=== PATIENT | female | born 1985 | race Two or more races ===

== ENCOUNTER 2025-01-07 08:48 | Outpatient (AMB) | payer MEDICAID, SELFPAY ==
[2025-01-07 09:05] VITALS: BP 100/69; PULSE 54; RESP 18; TEMP 36.6; O2SAT 98; BMI 27.1
--- NOTE | 2025-01-07 09:05 | GSCOFFNT_ITS ---
[facility] - [facility] 01/07/25 09:05 Height 1.57 m Height Method Stated Weight 67.33 kg Weight Measurement Method Standing Scale BMI 27.1 BP 100/69 Blood Pressure Source Automatic Cuff Blood Pressure Location Left Upper Arm Position Sitting Respiration 18 Pulse 54 L Pulse Source Monitor Temp 97.8 F Temp Source Temporal Artery Scan Pulse Oximetry (%) 98 Oxygen Delivery Method Room Air Med/Allergies Allergies & Medications Allergies amoxicillin Allergy (Mild, Verified 01/07/25 09:06) RASH Medication Reconciliation Vitamin * 1 tab PO QDAY #0 tabs 08/23/17 [History Confirmed 01/07/25] iron 18 mg tablet 18 mg PO BIDWM #0 tabs 08/23/17 [History Confirmed 01/07/25] hydrocodone 5 mg-acetaminophen 325 mg tablet (Freedom) 1 tab PO Q8H PRN pain #7 tabs 06/15/20 [Rx Confirmed 01/07/25] ibuprofen 600 mg tablet 600 mg PO Q6H PRN pain #14 tabs 06/15/20 [Rx Confirmed 01/07/25] hydrocortisone 2.5 % topical cream with perineal applicator 1 applic [place] QD-BID P RN hemorrhoids #30 grams 01/07/25 [Rx] MA Intake Visit Data Collection New Patient or Established: Established Patient (seen at [facility] within 3 years) Seen by Clinical Staff ONLY (RN/MA): No Reason for Visit:: REFERRAL HEMORRHOIDS Pain Present Currently: No PCP or OBGYN visit in last 3 months: Yes Hx Now: No Do You Feel Safe at Home: Yes Authorities Contacted: N/A Smoking Status Smoking Status: Never smoker Immunization / Flu Flu Vaccine in the Last 12 Months: No Flu Vaccine Exclusion Criteria: Refused by Patient Past Medical History Past Medical History NEUROLOGIC: Negative Neurological Disorders or Seizures CARDIAC: Negative Cardiac Disorders or Congestive Heart Failure RESPIRATORY: Negative Chronic Obstructive Pulmonary Disease (COPD) GASTROINTESTINAL: Negative Gastrointestinal Disorders GENITOURINARY: Negative Genitourinary Disorders or Renal Disease REPRODUCTIVE: Positive Previous Pregnancies; Negative Breast Cancer, Pelvic Inflammatory Disease or Uterine Prolapse ENDOCRINE: Negative Endocrine Disorders, Diabetes Mellitus Type 1 or Diabetes Mellitus Type 2 HEMATOLOGIC: Negative Blood Disorders OTHER HISTORY: Negative Blood Transfusions, Blood Transfusion Reaction, Anesthesia Reactions, MRSA, Clostridium Difficile or Breast Cancer Family History FAMILY HISTORY: Negative Family Psychiatric Problems, Family Respiratory Disorders, Family Cardiac Disorders, Family Gastrointestinal Problems, Family Cancer, Family Surgery or Family Anesthesia Reaction Surgical History SURGICAL: Positive Section Social History SMOKING STATUS: Smoking status: Never smoker SECOND HAND EXPOSURE: second hand exposure: No ALCOHOL: Alcohol Intake: Never HOUSING: Housing: House LIVES WITH: Lives With: Children HPI HPI Narrative 39F referred for symptomatic hemorrhoids. Pt states she has had symptoms on and off for 10 years, but since her last she feels the symptoms have been more persistent. She has perianal discomfort, occasional bleeding and feels that it is hard to keep the area clean as she has a constant bulging of tissue. She also reports occasional abdominal pain and sometimes has blood in her stools, as well as a feeling of incomplete evacuation, but denies any anorexia or unintentional weight loss. Pt has used OTC remedies with some improvement, and states her BMs are generally loose in nature, usually once per day. She drinks plenty of water and is trying to incorporate more fiber into her diet but does not take any supplements. Pt has not had a colonoscopy PMH: None PSHx: Csections Meds: None Allergies: Amoxicillin Social hx: Nonsmoker Family hx: No known IBD or colorectal CA ROS Review of Systems Systems Reviewed: All systems reviewed, normal except as documented Objective/Exam General General Appearance: alert, cooperative and well groomed Resp Respiratory exam: Absent respiratory distress Assessment & Plan Diagnosis / Problem List (1) Encounter for diagnostic colonoscopy due to change in bowel habits: Status: Acute Assessment & Plan: 39F referred for symptomatic hemorrhoids. I explained that increasing fiber intake can help to make stools more solid which can improve her symptoms, and also provided a handout which explains this and remedies such as sitz baths in more detail. We discussed the option of surgery but pt prefers to hold off which I think is reasonable as she has not fully maximized medical management. She is interested in having a colonoscopy to evaluate her loose BMs and difficulty fully evacuating. I explained benefits/risks of the procedure including bleeding, the possibility of needing to abort prematurely for safety as well as the risk of perforation requiring emergency surgery. All questions were answered and pt is agreeable to proceeding Office Procedures GNS Level of Care Nursing/Assessment Patient Status: Established Patient Nursing Assessment/Reassesment: Medication Reconciliation, Update PMH in EMR and Vital Signs Coordination of Care: Complex Care and Chronic Disease 1-5, Consent,records obtained, informed consent, Education Simp Pt/Fam, 1 Ins Authorization, Results/Orders obtained and Staff clarify orders Established Patient Charge Established Patient Point Assignment: 105 Established Patient Point Charge: Level 3 (80-115) Patient Portal Questionaires Social History Living Situation History Housing: House Tobacco History Smoking Status: Never smoker Second Hand Smoke Exposure: No Alcohol History Alcohol Intake: Never Domestic Abuse History Do You Feel Safe at Home: Yes Review of Systems Report any current symptoms Only answer those that you have currently: Past Medical History Past Medical History Have you ever been diagnosed with any of the following: Neurological Problems Seizures: No Cardiology Problems Congestive Heart Failure: No Respiratory Problems Chronic Obstructive Pulmonary Disease (COPD): No Genital/Urinary Problems Renal Disease: No Reproductive Problems Breast Cancer: No Pelvic Inflammatory Disease: No Previous Pregnancies: Yes Uterine Prolapse: No Endocrine Problems Diabetes Mellitus Type 1: No Diabetes Mellitus Type 2: No Other Problems Blood Transfusions: No Blood Transfusion Reaction: No Anesthesia Reactions: No MRSA: No Clostridium Difficile: No
== END 2025-01-07 09:43 | disposition home or self-care (01) ==
LOC: HODSRG 08:48
PROVIDERS: PCP Family Medicine; Referring Provider Family Medicine; Supervising Provider Surgery; Visit Provider Surgery
DX: R19.4 Change in bowel habit (principal)
CPT/HCPCS: 99213; G0463

== ENCOUNTER 2025-02-12 08:50 | Day surgery (SDC) | payer MEDICAID, SELFPAY ==
[2025-02-11 09:50] LABS: HCG Qualitative,Urine Negative
[2025-02-11 15:01] VITALS: BMI 25.0
[2025-02-12] VITALS (11 sets, daily range): BP systolic 96–126; BP diastolic 62–84; PULSE 56–88; RESP 15–18; TEMP 36.4–36.6; O2SAT 98–100; BMI 26.6
[2025-02-12] MEDS: RINGERS LACTATED 1000 ML 1,000 ML 125 ML IV (10:14)
[2025-02-12] MEDS: MIDAZOLAM INJ 1 MG/ML VIAL 2 ML (ASD USE ONLY) 2 MG IVP (10:14)
[2025-02-12] MEDS: fentaNYL CIT INJ 50 mCg/ML AMP 2ML (ASD USE ONLY) IVP (10:14)
== END 2025-02-12 11:05 | disposition home or self-care (01) ==
PROVIDERS: Referring Provider Surgery; Visit Provider Surgery
PROC: 0DBE8ZX Excision of Large Intestine, Via Natural or Artificial Opening Endoscopic, Diagnostic (ICD-10-PCS; CPT 45380; principal; 2025-02-12 10:45)
DX: K63.89 Other specified diseases of intestine (principal); K62.89 Other specified diseases of anus and rectum; K64.4 Residual hemorrhoidal skin tags
CPT/HCPCS: 45380; 81025; J1200; J2250; J3010; J7120

== ENCOUNTER 2025-02-21 14:26 | Outpatient (AMB) | payer MEDICAID, SELFPAY ==
[2025-02-21 14:50] VITALS: BP 118/76; PULSE 69; RESP 18; O2SAT 97; BMI 27.1
--- NOTE | 2025-02-21 14:50 | PD.GSCLVISIT ---
Vital Signs - [facility] 02/21/25 14:50 Height 1.57 m Height Method Stated Weight 66.905 kg Weight Measurement Method Standing Scale BMI 27.1 BP 118/76 Blood Pressure Source Automatic Cuff Blood Pressure Location Right Upper Arm Position Sitting Respiration 18 Pulse 69 Pulse Source Monitor Pulse Oximetry (%) 97 Oxygen Delivery Method Room Air Med/Allergies Allergies & Medications Allergies amoxicillin Allergy (Mild, Verified 02/21/25 14:51) RASH UNKNOWN ANTIBIOTIC Allergy (Unknown, Uncoded 02/21/25 14:51) Medication Reconciliation No Known Home Medications 02/12/25 [History Confirmed 02/21/25] MA Intake Visit Data Collection New Patient or Established: Established Patient (seen at [facility] within 3 years) Seen by Clinical Staff ONLY (RN/MA): No Reason for Visit:: F/U COLONOSCOPY Pain Present Currently: No Pain scale:: 0 Pain Scale Used: [place]o-Forbes/Numerical PCP or OBGYN visit in last 3 months: Yes Hx Now: No Do You Feel Safe at Home: Yes Authorities Contacted: N/A Smoking Status Smoking Status: Former smoker Immunization / Flu Flu Vaccine in the Last 12 Months: No Flu Vaccine Exclusion Criteria: No Exclusion Criteria Past Medical History Past Medical History NEUROLOGIC: Negative Neurological Disorders or Seizures CARDIAC: Negative Cardiac Disorders or Congestive Heart Failure RESPIRATORY: Negative Chronic Obstructive Pulmonary Disease (COPD) GASTROINTESTINAL: Negative Gastrointestinal Disorders GENITOURINARY: Negative Genitourinary Disorders or Renal Disease REPRODUCTIVE: Positive Previous Pregnancies; Negative Breast Cancer, Pelvic Inflammatory Disease or Uterine Prolapse MUSCULOSKELETAL: Negative Musculoskeletal Disorders ENDOCRINE: Negative Endocrine Disorders, Diabetes Mellitus Type 1 or Diabetes Mellitus Type 2 HEMATOLOGIC: Negative Blood Disorders OTHER HISTORY: Negative Blood Transfusions, Anesthesia Reactions, MRSA, Clostridium Difficile or Breast Cancer Family History FAMILY HISTORY: Negative Family Psychiatric Problems, Family Respiratory Disorders, Family Cardiac Disorders, Family Gastrointestinal Problems, Family Cancer, Family Surgery or Family Anesthesia Reaction Surgical History SURGICAL: Positive Section Social History SMOKING STATUS: Smoking status: Former smoker SECOND HAND EXPOSURE: second hand exposure: No ALCOHOL: Alcohol Intake: Former HOUSING: Housing: House LIVES WITH: Lives With: Children Travel Risk Travel Hx Recent Travel: No HPI HPI Narrative 39F here for follow up of colonoscopy done for change in bowel habits. Pt had a small area of erythema in the descending colon as well as nodularity of the rectum, both areas were biopsied negative. Pt states her hemorrhoid symptoms have resolved for the moment ROS Review of Systems Systems Reviewed: All systems reviewed, normal except as documented Objective/Exam General General Appearance: alert, cooperative and well groomed Resp Respiratory exam: Absent respiratory distress Assessment & Plan Diagnosis / Problem List (1) Encounter to discuss colonoscopy results: Status: Acute Assessment & Plan: 39F s/p colonoscopy for change in bowel habits which was negative for any acute findings. Pt is recommended to repeat screening in 10 years. As her hemorrhoids are asymptomatic she does not require intervention but pt is encouraged to reach out as needed with concerns or questions Office Procedures GNS Level of Care Nursing/Assessment Patient Status: Established Patient Nursing Assessment/Reassesment: Medication Reconciliation, Update PMH in EMR and Vital Signs Coordination of Care: Complex Care and Chronic Disease 1-5, Education Complex Pt/Fam, Consent,records obtained, informed consent, Results/Orders obtained and Staff clarify orders Established Patient Charge Established Patient Point Assignment: 95 Established Patient Point Charge: EP Level 3 (80-115) Patient Portal Questionaires Social History Living Situation History Housing: House Tobacco History Smoking Status: Former smoker Second Hand Smoke Exposure: No Alcohol History Alcohol Intake: Former Domestic Abuse History Do You Feel Safe at Home: Yes Review of Systems Report any current symptoms Only answer those that you have currently: Past Medical History Past Medical History Have you ever been diagnosed with any of the following: Neurological Problems Seizures: No Cardiology Problems Congestive Heart Failure: No Respiratory Problems Chronic Obstructive Pulmonary Disease (COPD): No Genital/Urinary Problems Renal Disease: No Reproductive Problems Breast Cancer: No Pelvic Inflammatory Disease: No Previous Pregnancies: Yes Uterine Prolapse: No Endocrine Problems Diabetes Mellitus Type 1: No Diabetes Mellitus Type 2: No Other Problems Blood Transfusions: No Anesthesia Reactions: No MRSA: No Clostridium Difficile: No
== END 2025-02-21 15:02 | disposition home or self-care (01) ==
LOC: HODSRG 14:26
PROVIDERS: PCP Family Medicine; Referring Provider Family Medicine; Supervising Provider Surgery; Visit Provider Surgery
DX: Z71.2 Person consulting for explanation of examination or test findings (principal)
CPT/HCPCS: 99213; G0463